=== PATIENT | female | born 1995 | race Caucasian/White ===

== ENCOUNTER → 2021-05-15 | Emergency (ER) | payer BC ==
[~2021-05-15] VITALS: Ht 162.6 cm; Wt 68.0 kg
[~2021-05-15] MED LIST: KETO10TA2 PO; OXYC-128 PO
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
--- NOTE | 2021-05-15 02:17 | NUR ---
X RAY AT BEDSIDE
--- NOTE | 2021-05-15 02:47 | NUR ---
[phone] [facility]
--- NOTE | 2021-05-15 04:15 | NUR ---
EMT AT THE BEDSIDE, PROVIDED PT WITH SHORT LEG POSTERIOR WITH STIRRUP SPLINT AND CRUTCHES. TEACHING ON HOW TO USE THE CRUTCHES WAS PROVIDED WITH DEMONSTRATION.
[2021-05-15 04:20] VITALS: BP 128/79
--- NOTE | 2021-05-15 04:21 | NUR ---
Patient discharged to home in stable condition. Rx AND Written and verbal after care instructions given. Patient verbalizes understanding of instruction. Crutches dispensed. Pt instructed on proper use of crutches. Patient able to demonstrate correct use of crutches.
== END | disposition home or self-care (01) ==
LOC: ER 02:00
DX: S82.52XA Displaced fracture of medial malleolus of left tibia, initial encounter for closed fracture (principal); V49.59XA Passenger injured in collision with other motor vehicles in traffic accident, initial encounter; Y93.89 Activity, other specified; Y92.413 State road as the place of occurrence of the external cause; Y99.8 Other external cause status
CPT/HCPCS: 71100-TC; 73610-TC